=== PATIENT | female | born 1950 | race Caucasian/White ===

== ENCOUNTER 2016-08-29 19:09 | Emergency (ER) | payer MEDICARE ==
[2016-08-29 21:20] VITALS: BP 145/87
== END 2016-08-29 21:20 | disposition home or self-care (01) ==
LOC: ED 19:09
DX: L03.011 Cellulitis of right finger (principal); E11.9 Type 2 diabetes mellitus without complications; I10 Essential (primary) hypertension; E66.01 Morbid (severe) obesity due to excess calories
CPT/HCPCS: 82962; 83880; 90715; J3490